=== PATIENT | male | born 1955 | race Caucasian/White ===

== ENCOUNTER 2017-12-14 19:38 | Emergency (ER) | payer OTHER ==
--- NOTE | 2017-12-14 19:40 | ER Report ---
History and Physical Time Seen By MD: 19:40 HPI/ROS CHIEF COMPLAINT: Right arm pain HISTORY OF PRESENT ILLNESS: Patient is a 62-year-old male here with complaints of right arm pain much originates at the olecranon fossa and radiates up and down the arm. Patient reports that the symptoms have worsened in the course of the past day. Patient reports tenderness to palpation on the right elbow and surrounding muscles. Patient denies trauma to the arm. Patient does have mild paresthesias distal to the site. Neurovascular exam is intact. Patient is afebrile, denies chest pain, shortness breath, rashes, fevers or chills. REVIEW OF SYSTEMS: Constitutional: No fever, no chills. Eyes: No discharge. ENT: No sore throat. Cardiovascular: No chest pain, no palpitations. Respiratory: No cough, no shortness of breath. Gastrointestinal: No abdominal pain, no vomiting. Genitourinary: No hematuria. Musculoskeletal: + right elbow pain with passive ROM Skin: No rashes. Neurological: No headache. Allergies: Coded Allergies: Nnamnti-Dgj-Xtj Reductase Inhibitor (Verified Allergy, Intermediate, RASH AND BODY ACHES, 12/14/17) Sulfa (Sulfonamide Antibiotics) (Verified Allergy, Intermediate, RASH, ) ciprofloxacin (Verified Allergy, Intermediate, RASH, 12/14/17) baclofen (Verified Allergy, Unknown, 12/14/17) Home Meds Reported Medications Metformin Hcl (METFORMIN HCL) 500 Mg Tablet, 2 TAB PO BID, TAB 12/14/17 Aspirin (ASPIR 81) 81 Mg Tablet.dr, 81 MG PO QDAY, TAB 12/14/17 Girdler-3 Fatty Acids/Fish Oil (FISH OIL 1,000 MG CAPSULE) 1 Each Capsule, 1 EACH PO QDAY, CAPSULE 12/14/17 Testosterone Cypionate (Testone Cik) 200 Mg/1 Ml Kit, 1 ML IM TWO TIMES A MONTH 12/14/17 Pantoprazole Sodium (PANTOPRAZOLE SODIUM) 40 Mg Tablet.dr, 40 MG PO QDAY, TAB.SR 12/14/17 Gabapentin (GABAPENTIN) 300 Mg Capsule, 600 MG PO TID, CAPSULE 12/14/17 Losartan Potassium (LOSARTAN POTASSIUM) 50 Mg Tablet, 50 MG PO QDAY 12/14/17 Trazodone Hcl (TRAZODONE HCL) 50 Mg Tablet, 50 MG PO QHS 12/14/17 Constitutional Vital Sign - Last 24 Hours 12/14/17 19:44 Temp 97.9 Pulse 74 Resp 18 B/P (MAP) 140/84 Pulse Ox 92 O2 Delivery Room Air Physical Exam General Appearance: The patient is alert, has no immediate need for airway protection and no signs of toxicity. NAD Eyes: Pupils equal and round no pallor or injection. ENT, Mouth: Mucous membranes are moist. Respiratory: There are no retractions, lungs are clear to auscultation. Cardiovascular: Regular rate and rhythm. [ ] Gastrointestinal: Abdomen is soft and non tender, no masses, bowel sounds normal. Neurological: No focal deficits or weakness Skin: Warm and dry, no rashes. Musculoskeletal: Neck is supple non tender. RUE Tender to palpation at elbow and with ROM testing DIFFERENTIAL DIAGNOSIS: After history and physical exam differential diagnosis was considered for bursitis, muscle tear, arthritis, septic joint, gout Medical Decision Making Data Points Result Diagram: 12/14/17195412/14/171954 Laboratory Hematology Test 12/14/17 19:55 Red Blood Count 5.06 M/uL (4.00-5.60) Mean Corpuscular Volume 93.1 fL (80.0-96.0) Mean Corpuscular Hemoglobin 32.6 pg (26.0-33.0) Mean Corpuscular Hemoglobin Concent 35.1 g/dL (32.0-36.0) Red Cell Distribution Width 13.6 % (11.5-14.5) Mean Platelet Volume 6.9 fL (7.2-11.1) Neutrophils (%) (Auto) 72.6 % (39.4-72.5) Lymphocytes (%) (Auto) 17.7 % (17.6-49.6) Monocytes (%) (Auto) 8.1 % (4.1-12.4) Eosinophils (%) (Auto) 1.1 % (0.4-6.7) Basophils (%) (Auto) 0.5 % (0.3-1.4) Nucleated RBC Relative Count (auto) 0.1 /100WBC Neutrophils # (Auto) 8.8 K/uL (2.0-7.4) Lymphocytes # (Auto) 2.1 K/uL (1.3-3.6) Monocytes # (Auto) 1.0 K/uL (0.3-1.0) Eosinophils # (Auto) 0.1 K/uL (0.0-0.5) Basophils # (Auto) 0.1 K/uL (0.0-0.1) Nucleated RBC Absolute Count (auto) 0.01 K/uL Prothrombin Time 14.1 seconds (12.0-14.4) Prothromb Time International Ratio 1.08 Activated Partial Thromboplast Time 28 seconds (23-35) D-Dimer Quantitative (PE/DVT) < 0.27 ug/ml (0-0.50) Sodium Level 143 mmol/L (137-145) Potassium Level 3.9 mmol/L (3.5-5.0) Chloride Level 104 mmol/L (98-107) Carbon Dioxide Level 25 mmol/L (22-30) Blood Urea Nitrogen 19 mg/dl (9-21) Creatinine 0.90 mg/dl (0.66-1.25) Glomerular Filtration Rate Calc > 60.0 Random Glucose 99 mg/dl (75-110) Calcium Level 9.2 mg/dl (8.4-10.2) Total Bilirubin 0.5 mg/dl (0.2-1.3) Aspartate Amino Transf (AST/SGOT) 58 U/L (0-35) Alanine Aminotransferase (ALT/SGPT) 29 U/L (0-56) Alkaline Phosphatase 51 U/L (0-126) Troponin I < 0.012 ng/ml B-Type Natriuretic Peptide 14 pg/ml (0-100) Total Protein 7.4 g/dl (6.3-8.2) Albumin 4.2 g/dl (3.5-5.0) Chemistry Test 12/14/17 19:55 White Blood Count 12.2 k/uL (4.5-11.0) Red Blood Count 5.06 M/uL (4.00-5.60) Hemoglobin 16.5 g/dL (14.0-18.0) Hematocrit 47.1 % (42.0-52.0) Mean Corpuscular Volume 93.1 fL (80.0-96.0) Mean Corpuscular Hemoglobin 32.6 pg (26.0-33.0) Mean Corpuscular Hemoglobin Concent 35.1 g/dL (32.0-36.0) Red Cell Distribution Width 13.6 % (11.5-14.5) Platelet Count 190 K/uL (150-450) Mean Platelet Volume 6.9 fL (7.2-11.1) Neutrophils (%) (Auto) 72.6 % (39.4-72.5) Lymphocytes (%) (Auto) 17.7 % (17.6-49.6) Monocytes (%) (Auto) 8.1 % (4.1-12.4) Eosinophils (%) (Auto) 1.1 % (0.4-6.7) Basophils (%) (Auto) 0.5 % (0.3-1.4) Nucleated RBC Relative Count (auto) 0.1 /100WBC Neutrophils # (Auto) 8.8 K/uL (2.0-7.4) Lymphocytes # (Auto) 2.1 K/uL (1.3-3.6) Monocytes # (Auto) 1.0 K/uL (0.3-1.0) Eosinophils # (Auto) 0.1 K/uL (0.0-0.5) Basophils # (Auto) 0.1 K/uL (0.0-0.1) Nucleated RBC Absolute Count (auto) 0.01 K/uL Prothrombin Time 14.1 seconds (12.0-14.4) Prothromb Time International Ratio 1.08 Activated Partial Thromboplast Time 28 seconds (23-35) D-Dimer Quantitative (PE/DVT) < 0.27 ug/ml (0-0.50) Glomerular Filtration Rate Calc > 60.0 Calcium Level 9.2 mg/dl (8.4-10.2) Total Bilirubin 0.5 mg/dl (0.2-1.3) Aspartate Amino Transf (AST/SGOT) 58 U/L (0-35) Alanine Aminotransferase (ALT/SGPT) 29 U/L (0-56) Alkaline Phosphatase 51 U/L (0-126) Troponin I < 0.012 ng/ml B-Type Natriuretic Peptide 14 pg/ml (0-100) Total Protein 7.4 g/dl (6.3-8.2) Albumin 4.2 g/dl (3.5-5.0) Coagulation Test 12/14/17 19:55 Prothrombin Time 14.1 seconds Prothromb Time International Ratio 1.08 Activated Partial Thromboplast Time 28 seconds D-Dimer Quantitative (PE/DVT) < 0.27 ug/ml ED Course/Re-evaluation ED Course Patient is a 62-year-old male here with complaints of right upper extremity pain which originates at the olecranon fossa and radiates up and down the arm. Patient reports pain with range of motion testing. He reports that the pain acutely worsened in the past 24 hours. Depart Departure Latest Vital Signs Vital Signs Date Time Temp Pulse Resp B/P (MAP) Pulse Ox O2 Delivery O2 Flow Rate FiO2 12/14/17 19:44 97.9 74 18 140/84 92 Room Air Impression: Primary Impression: Arm pain, right Condition: Improved Disposition: HOME OR SELF-CARE New Scripts Prednisone (PREDNISONE) 20 Mg Tablet 40 MG PO QDAY for 5 Days, #10 TAB Prov: CONNOR LYN DO 12/14/17 Tramadol Hcl (TRAMADOL HCL) 50 Mg Tablet 50 MG PO Q6H Y for PAIN, #12 TAB 0 Refills Prov: CONNOR LYN DO 12/14/17 Doxycycline Hyclate (DOXYCYCLINE HYCLATE) 100 Mg Tablet 100 MG PO BID for 5 Days, #10 TAB Prov: CONNOR LYN DO 12/14/17 Patient Instructions: Arm Pain (ED), Elbow Bursitis (ED) Additional Instructions: Please take one tablet of doxycycline twice a day for 5 days. You may take tramadol 1 tablet every 6 hours as needed for pain. Please take 2 tablets of prednisone daily for 5 days. Please return promptly if you develop worsening pain, fevers, rashes, numbness or tingling in the arm. CONNOR LYN DO Dec 14, 2017 19:40
[2017-12-14] MEDS ORDERED: NS(*) 0.9% 1000 ML BAG 1,000 ML IV ONE (19:48)
[2017-12-14] MEDS ORDERED: ASPIRIN 81 MG CHEW PO ONE (19:50)
[2017-12-14] MEDS ORDERED: KETOROLAC 30 MG/ML VIAL IVP ONE (19:50)
[2017-12-14] MEDS ORDERED: TRAZ-156 PO (19:51)
[2017-12-14] MEDS ORDERED: LOSA50TA72 PO (19:51)
[2017-12-14] MEDS ORDERED: PANT40TA65 PO (19:52)
[2017-12-14] MEDS ORDERED: GABA-549 PO (19:52)
[2017-12-14] MEDS ORDERED: TEST200K IM (19:53)
[2017-12-14] MEDS ORDERED: ASPI-1471 PO (19:54)
[2017-12-14] MEDS ORDERED: OMEG-11 PO (19:54)
[2017-12-14] MEDS ORDERED: METF-411 PO (19:55)
--- NOTE | 2017-12-14 20:05 | EKG ---
FACILITY: [facility] - [place] PATIENT NAME: TONYA EUBANKS : [id number] MR: [id number] V: [id number] EXAM DATE: ORDERING PHYSICIAN: CONNOR LYN TECHNOLOGIST: [place] Test Reason : R ARM PAIN Blood Pressure : / mmHG Vent. Rate : 072 BPM Atrial Rate : 072 BPM P-R Int : 152 ms QRS Dur : 084 ms QT Int : 384 ms P-R-T Axes : 054 033 025 degrees QTc Int : 420 ms Sinus rhythm Nonspecific ST findings No previous ECGs available Confirmed by YUNG SMITH ([id number] on 12/14/2017 10:11:17 PM Referred By: EBONI Confirmed By:YUNG SMITH
[2017-12-14 20:06] LABS: PLATELET COUNT, AUTOMATED 190 K/uL (150-450)
[2017-12-14 20:40] LABS: INR 1.08
--- NOTE | 2017-12-14 21:05 | RADIOLOGY IMAGING REPORT ---
FACILITY: [facility] [place] PATIENT NAME: Oliver Blake : 1955 MR: [id number] V: [id number] EXAM DATE: ORDERING PHYSICIAN: CONNOR LYN TECHNOLOGIST: Location: [facility] Patient: Oliver Blake : 1955 Visit/Account:[id number] Date of Sevice: 12/14/2017 RIGHT ELBOW: Indication: Pain. Technique: 3 views were obtained. Comparison: None. Findings: There are no signs of fracture, subluxation, or other acute deformity. There is uniform min eralization of the skeletal structures. There are mild/moderate degenerative changes around the dista l humerus, proximal ulna, and proximal radius. The lateral view demonstrates evidence of joint effusi on. The periarticular soft tissues are otherwise unremarkable. IMPRESSION: Mild/moderate degenerative changes. Evidence of joint effusion. No evidence of fracture o r acute skeletal deformity. Report Dictated By: Valentino Mckinney MD at 12/14/2017 8:58 PM Report E-Signed By: Valentino Mckinney MD at 12/14/2017 9:01 PM WSN:[id number]
--- NOTE | 2017-12-14 21:07 | RADIOLOGY IMAGING REPORT ---
FACILITY: [facility] PATIENT NAME: Oliver Blake : 1955 MR: [id number] V: [id number] EXAM DATE: ORDERING PHYSICIAN: CONNOR LYN TECHNOLOGIST: Location: [facility] Patient: Oliver Blake : 1955 Visit/Account:[id number] Date of Sevice: 12/14/2017 CHEST: Indication: Chest pain. Technique: Frontal and lateral views were obtained. Comparison: None. Skeletal and soft tissue structures: A left humeral prosthesis is present. There are no signs of acut e skeletal deformity. Heart and mediastinum: Within normal limits. Lung hooker: Well-expanded and clear. Pleural spaces: Unremarkable. Impression: No acute process. Report Dictated By: Valentino Mckinney MD at 12/14/2017 9:02 PM Report E-Signed By: Valentino Mckinney MD at 12/14/2017 9:03 PM WSN:[id number]
--- NOTE | 2017-12-14 21:08 | RADIOLOGY IMAGING REPORT ---
FACILITY: [facility] PATIENT NAME: Oliver Blake : 1955 MR: [id number] V: [id number] EXAM DATE: ORDERING PHYSICIAN: CONNOR LYN TECHNOLOGIST: Location: [facility] Patient: Oliver Blake : 1955 Visit/Account:[id number] Date of Sevice: 12/14/2017 RIGHT SHOULDER: Indication: Pain. Technique: 2 views were obtained. Comparison: None. Findings: There is no evidence of fracture, subluxation, or other acute deformity. There are minimal degenerative changes. There is uniform mineralization of the skeletal structures. No periarticular ca lcifications or soft tissue abnormalities are identified. IMPRESSION: No acute deformity. Report Dictated By: Valentino Mckinney MD at 12/14/2017 9:03 PM Report E-Signed By: Valentino Mckinney MD at 12/14/2017 9:04 PM WSN:[id number]
[2017-12-14] MEDS ORDERED: HYDROmorphone HCL 2 MG/ML SDV IVP ONE (21:30)
[2017-12-14] MEDS ORDERED: HYDROmorphone* 1 MG/ML 1 MG/ML ML IVP ONE (21:45)
--- NOTE | 2017-12-14 21:52 | RADIOLOGY IMAGING REPORT ---
FACILITY: [facility] PATIENT NAME: Oliver Blake : 1955 MR: [id number] V: [id number] EXAM DATE: ORDERING PHYSICIAN: CONNOR LYN TECHNOLOGIST: Location: [facility] Patient: Oliver Blake : 1955 Visit/Account:[id number] Date of Sevice: 12/14/2017 EXAMINATION: Right Upper Extremity Venous Ultrasound HISTORY: Pain and swelling near the elbow. TECHNIQUE: Ultrasound evaluation of the right upper extremity veins was performed with color and spe ctral Doppler and compression views. COMPARISON: None. FINDINGS: The right internal jugular, subclavian, axillary, brachial, cephalic, basilic, radial, and ulnar vein s are patent and compressible, without evidence of intraluminal thrombus. IMPRESSION: Normal exam. No evidence of DVT in the right upper extremity. Report Dictated By: Kurt Forde MD at 12/14/2017 9:48 PM Report E-Signed By: Kurt Forde MD at 12/14/2017 9:49 PM WSN:[id number]
[2017-12-14] MEDS ORDERED: DOXYCYCLINE HYCL 100 MG TAB PO ONE (21:55)
[2017-12-14] MEDS ORDERED: DOXY-179 PO (21:55)
[2017-12-14] MEDS ORDERED: traMADol 50 MG TAB TH 2 TAB/BOTTLE PO ONE (21:55)
[2017-12-14] MEDS ORDERED: TRAM-420 PO (21:55)
[2017-12-14] MEDS ORDERED: PRED20TA6 PO (21:55)
[2017-12-14] MEDS ORDERED: predniSONE 20 MG TAB PO ONE (21:55)
[2017-12-14 22:11] VITALS: BP 142/77
== END 2017-12-14 22:17 | disposition home or self-care (01) ==
LOC: ER 19:43
DX: M79.601 Pain in right arm (principal)
CPT/HCPCS: 71046; 73030; 73070; 83880; 84484; 85025; 85379; 85610; 85730; 93005; 93971; 96374; 96375; 99285; A4565; C9399; J1170; J1885; J7512; 82040; 82247; 82310; 82374; 82435; 82565; 82947; 84075; 84132; 84155; 84295; 84450; 84460; 84520